=== PATIENT | female | born 1985 | race Caucasian/White ===

== ENCOUNTER 2020-01-13 12:26 | Outpatient (CLI) | payer OTHER, SELFPAY ==
--- NOTE | ~2020-01-13 | US_ITS ---
EXAMINATION: US OB <= 14 weeks fetus DATE: 01/13/2020 13:16 INDICATION: Increased risk of TECHNIQUE: Real-time transabdominal obstetric ultrasound. FINDINGS: No prior studies for comparison. The uterus measures 9.8 x 6 x 4.7 cm. There is an intrauterine gestational sac, with pole ident ified. The crown rump length measures 1.95 cm, which correlates with a estimated gestational age of 8 weeks 4 days. heart tones are identified measuring 184 BPM. The ovaries are within normal l imits. Right ovary measures 3.5 x 2.6 x 1.3 cm. Left ovary measures 1.9 x 2.1 x 2.1 cm IMPRESSION: 1. SL IUP with an EGA of 8 weeks, 4 days (EDC by current ultrasound of 08/20/2020). Reviewed, dictated and finalized at location A. IMPRESSION: 1. SL IUP with an EGA of 8 weeks, 4 days (EDC by current ultrasound of 08/20/20).
== END 2020-01-13 12:27 | disposition home or self-care (01) ==
DX: O09.91 Supervision of high risk pregnancy, unspecified, first trimester (principal); Z3A.00 Weeks of gestation of pregnancy not specified
CPT/HCPCS: 76801

== ENCOUNTER 2020-01-27 10:06 | Outpatient (CLI) | payer OTHER, SELFPAY ==
--- NOTE | ~2020-01-27 | US_ITS ---
EXAMINATION: US OB <= 14 weeks fetus DATE: 01/27/2020 11:33 INDICATION: High risk . Evaluate gestational age. TECHNIQUE: Real-time transabdominal obstetric ultrasound. FINDINGS: 01/13/2020 The uterus measures 12.6 x 5.1 x 7.2 cm. There is an intrauterine gestational sac, with pole id entified. The crown rump length measures 3.94 cm. heart tones are identified measuring 163 BPM . The ovaries are normal. IMPRESSION: 1. SL IUP with an EGA of 10 weeks, 4 days (EDC by initial ultrasound of 08/20/2020). Reviewed, dictated and finalized at location A. IMPRESSION: 1. SL IUP with an EGA of 10 weeks, 4 days (EDC by initial ultrasound of 020).
== END 2020-01-27 10:07 | disposition home or self-care (01) ==
DX: O09.91 Supervision of high risk pregnancy, unspecified, first trimester (principal); Z3A.10 10 weeks gestation of pregnancy
CPT/HCPCS: 76801; 76817